=== PATIENT | male | born 1965 | race Caucasian/White ===

== ENCOUNTER 2020-10-14 07:28 | Emergency (ER) | payer SELFPAY ==
[~2020-10-14] VITALS: Ht 177.8 cm; Wt 97.5 kg
[2020-10-14 08:08] LABS: BASO # 0.1 10*3/uL (0.0-0.1); BASO % 0.5 % (0.0-1.0); EOS # 0.3 10*3/uL (0.0-0.4); EOS % 2.6 % (1.0-4.0); HEMATOCRIT 38.5 % (42.0-52.0); LYMPH # 1.6 10*3/uL (1.3-4.4); LYMPH % 16.3 % (27.0-41.0); MEAN CELL VOLUME 93.2 fl (80.0-94.0); MEAN CORPUSCULAR HGB CONC 33.2 g/dl (33.0-37.0); MEAN PLATELET VOLUME 9.7 fl (9.6-12.3); MONO # 1.1 10*3/uL (0.1-1.0); MONO % 11.6 % (3.0-9.0); NEUT # 6.6 10*3/uL (2.3-7.9); NEUT % 68.7 % (47.0-73.0); PLATELET COUNT AUTOMATED 161 10*3/uL (130-400); RED BLOOD COUNT 4.13 10*6/uL (4.50-5.90); RED CELL DISTRI WIDTH 12.1 % (0-14.5); WHITE BLOOD COUNT 9.6 10*3/uL (4.8-10.8)
[2020-10-14 08:23] LABS: ALBUMIN 3.9 gm/dl (3.1-4.5); CREATININE 1.74 mg/dL (0.70-1.30); TOTAL PROTEIN 7.7 gm/dL (6.4-8.2)
[2020-10-14 08:35] LABS: BILIRUBIN Negative (Negative); BLOOD 2+ (Negative); CLARITY Clear (Clear); COLOR Orange (Yellow); GLUCOSE Trace (Negative); KETONE Negative (Negative); NITRITE Positive (Negative)
[2020-10-14 08:50] LABS: BACTERIA TRACE; LEUKO ESTERASE Trace (Negative); RBC 0-2 rbc/hpf (0-2)
[2020-10-14] MEDS ORDERED: REGLAN10 M1 PO ×2 (10:07→10:13)
[2020-10-14] MEDS ORDERED: FLOMAX0.4 MG PO ×2 (10:07→10:13)
[2020-10-14] MEDS ORDERED: HYDROCODONE-AC1 EAC1 PO (10:07)
[2020-10-14] MEDS ORDERED: MIRALAX POWDER17 G1 PO (10:13)
== END 2020-10-14 10:11 | disposition home or self-care (01) ==
LOC: ED 07:28
PROVIDERS: Emergency Medicine
DX: N13.2 Hydronephrosis with renal and ureteral calculous obstruction (principal); N17.9 Acute kidney failure, unspecified; K59.00 Constipation, unspecified; K42.9 Umbilical hernia without obstruction or gangrene; I10 Essential (primary) hypertension; E78.00 Pure hypercholesterolemia, unspecified; E11.9 Type 2 diabetes mellitus without complications